=== PATIENT | female | born 1965 | race Caucasian/White ===

== ENCOUNTER 2019-05-28 12:40 | Emergency (ER) | payer MEDICAID ==
[2019-05-28] MEDS ORDERED: Diphtheria,Pertussis(Acell),Tetanus Vaccine 0.5 ML SDV IM ONE (13:11)
[2019-05-28] MEDS ORDERED: Bacitracin Oint 1 GM U/D Packet TOP ONE (13:11)
--- NOTE | 2019-05-28 13:30 | EDM.PDOC ---
ED HPI GENERAL MEDICAL PROBLEM - General Chief Complaint: Laceration Stated Complaint: INJURED FINGER Time Seen by Provider: 05/28/19 13:10 Source of Information: Reports: Patient, Old Records, RN History Limitations: Reports: No Limitations - History of Present Illness INITIAL COMMENTS - FREE TEXT/NARRATIVE: 53 yo female lacerated her R index finger before arrival. Here for repair. Tetanus is not UTD. Onset: Today Onset Date: 05/28/19 Onset Time: 12:10 Duration: Minutes: Location: Reports: Upper Extremity, Right Quality: Reports: Dull Severity: Mild Improves with: Reports: None Worsens with: Reports: None Context: Reports: Trauma Associated Symptoms: Reports: No Other Symptoms Treatments [employer]: Reports: Other (see below) (water rinse) Right Finger-Index Pain Score (Numeric/FACES): 4 - Related Data Allergies Allergy/AdvReac Type Severity Reaction Status Date / Time No Known Allergies Allergy Verified 05/28/19 12:58 Home Meds: Home Meds NK [No Known Home Meds] 05/28/19 [History] Past Medical History HEENT History: Reports: Impaired Vision Genitourinary History: Reports: None [employer] LINE History: Reports: , Spontaneous Neurological History: Reports: Concussion - Past Surgical History Head Surgeries/Procedures: Reports: None HEENT Surgical History: Reports: None Female Surgical History: Reports: Endometrial Ablation Neurological Surgical History: Reports: None Dermatological Surgical History: Reports: None Social & Family History - Tobacco Use Smoking Status *Q: Never Smoker Second Hand Smoke Exposure: No - Caffeine Use Caffeine Use: Reports: Coffee - Recreational Drug Use Recreational Drug Use: No ED ROS GENERAL - Review of Systems Review Of Systems: See Below Constitutional: Reports: No Symptoms Skin: Reports: Wound (R index finger laceration) Neurological: Reports: No Symptoms ED EXAM, SKIN/RASH Exam: See Below Exam Limited By: No Limitations General Appearance: Alert, WD/WN, No Apparent Distress Neurological: Alert, Oriented, CN II-XII Intact, Normal Cognition, No Motor/ Sensory Deficits Psychiatric: Normal Affect, Normal Mood Skin: Warm, Dry, Normal Color, No Rash, Wound/Incision Location, Skin: Upper Extremity, Right Characteristics: Linear Associated features: Tenderness. No: Warmth, Lymphangitis ED SKIN PROCEDURES - Laceration/Wound Repair Right Dorsal Digit - 2nd (Index) Appearance: Subcutaneous, Linear, Clean Distal NVT: Neuro & Vascular Intact, No Tendon Injury Anesthetic Type: Local Local Anesthesia - Lidocaine (Xylocaine): 1% with EPI Local Anesthetic Volume: 2cc Skin Prep: Saline Exploration/Debridement/Repair: Wound Explored Closed with: Sutures Lac/Wound length In cm: 1.6 Suture Size: 6-0 # of Sutures: 5 Suture Type: Nylon, Interrupted, Mattress Drain Placement: No Sterile Dressing Applied: Nurse Tetanus Status Addressed: Yes Complications: No Course - Vital Signs Last Recorded V/S: Last Vital Signs Temp 35.3 C L 05/28/19 13:03 Pulse 71 05/28/19 13:03 Resp 15 05/28/19 13:03 BP 137/83 05/28/19 13:03 Pulse Ox 97 05/28/19 13:03 - Orders/Labs/Meds Orders: Active Orders 24 hr Category Date Time Status Vaccines to be Administered [RC] PER UNIT ROUTINE Care 05/28/19 13:11 Ordered Meds: Medications Discontinued Medications Generic Name Dose Route Start Last Admin Trade Name Janice PRN Reason Stop Dose Admin Bacitracin 1 dose 05/28/19 13:11 Bacitracin Oint 1 Gm TOP 05/28/19 13:12 ONETIME ONE Diphtheria/Tetanus/Acell Pertussis 0.5 ml 05/28/19 13:11 Adacel IM 05/28/19 13:12 .ONCE ONE Departure - Departure Time of Disposition: 13:35 Disposition: Home, Self-Care 01 Condition: Good Clinical Impression: Laceration of index finger Qualifiers: Encounter type: initial encounter Damage to nail status: without damage Foreign body presence: without foreign body Laterality: right Qualified Code(s) : S61.210A - Laceration without foreign body of right index finger without damage to nail, initial encounter - Discharge Information *PRESCRIPTION DRUG MONITORING PROGRAM REVIEWED*: Not Applicable *COPY OF PRESCRIPTION DRUG MONITORING REPORT IN PATIENT DARLENE: Not Applicable Instructions: Laceration Care, Adult, [id number] Referrals: PCP,None [Primary Care Provider] - Additional Instructions: Clean wound twice daily with soap and water. Keep area clean for 3 days. Dry wound after washing. Apply Bacitracin ointment and a new dressing. Stitches out in 10 days. Recheck for signs of infection. Sepsis Event Note - Evaluation Sepsis Screening Result: No Definite Risk - Focused Exam Vital Signs: Vital Signs Temp Pulse Resp BP Pulse Ox 05/28/19 13:03 35.3 C L 71 15 137/83 97 05/28/19 12:58 35.3 C L 71 15 137/83 97 Date Exam was Performed: 05/28/19 Time Exam was Performed: 13:25 - My Orders Last 24 Hours: My Active Orders 05/28/19 13:11 Vaccines to be Administered [RC] PER UNIT ROUTINE - Assessment/Plan Last 24 Hours: My Active Orders 05/28/19 13:11 Vaccines to be Administered [RC] PER UNIT ROUTINE
== END 2019-05-28 13:36 | disposition home or self-care (01) ==
LOC: JP.ED 12:40
DX: S61.210A Laceration without foreign body of right index finger without damage to nail, initial encounter (principal); Z23 Encounter for immunization; W26.9XXA Contact with unspecified sharp object(s), initial encounter
CPT/HCPCS: 12001; 90471; 90715; 99282

== ENCOUNTER 2023-05-11 08:30 | Day surgery (SDC) | payer MEDICAID ==
[~2023-05-11 08:30] MED LIST: Midazolam 1 MG/ML 2 ML SDV ONE; Propofol 200 MG/20 ML SDV ONE; fentaNYL 100 MCG/2 ML SDV ONE
[2023-05-11] MEDS: Lactated Ringers 1,000 ML IV SCH (08:45)
== END 2023-05-11 11:45 | disposition home or self-care (01) ==
LOC: JP.SDS 08:30
PROVIDERS: ATTEND Student in an Organized Health Care Education/Training Program
DX: Z12.11 Encounter for screening for malignant neoplasm of colon (principal); I10 Essential (primary) hypertension; R89.1 Abnormal level of hormones in specimens from other organs, systems and tissues; L08.9 Local infection of the skin and subcutaneous tissue, unspecified; M54.41 Lumbago with sciatica, right side
CPT/HCPCS: 45378; J2250; J2704; J3010; J7120